=== PATIENT | female | born 1965 | race Caucasian/White ===

== ENCOUNTER → 2020-08-16 13:30 | Outpatient (CLI) | payer OTHER, SELFPAY ==
[2020-08-16 13:57] LABS: COVID19 -Nasal RAPID Negative (Negative)
== END ==
PROVIDERS: PCP Internal Medicine; Visit Provider Obstetrics & Gynecology
DX: Z20.822 Contact with and (suspected) exposure to COVID-19 (principal)
CPT/HCPCS: 87635

== ENCOUNTER 2020-08-19 10:02 | Day surgery (SDC) | payer OTHER, SELFPAY ==
[2020-08-19] VITALS (8 sets, daily range): BP systolic 115–135; BP diastolic 76–83; PULSE 57–74; RESP 11–17; TEMP 36.1–36.2; O2SAT 94–99; BMI 32.9
--- NOTE | 2020-08-19 | PATH_ITS ---
[facility] Accession Number: [id number] . 01 Material submitted: . endocervix - ENDOCERVIX . 01 Clinical history: . LEEP CONE BX OF CERVIX SHORT STITCH AT 6 O'CLOCK . 02 Diagnosis: Cervix, Endocervix, LEEP: Squamous and endocervical mucosa with no evidence of neoplasia. Please see comment. MRV 08/23/2020 1501 Local . 02 Comment: The transformation zone is not well represented in the sections examined including the additional multiple deeper levels. This may be due to the recent history of instrumentation. These findings do not correlate with the patient's prior pap smear report. The prior Pap smear was requested for review/correlation from the outside institution on 08/22/2020. . Dr. Carlson discussed preliminary results with Dr. Ball on 08/22/2020. . 02 Electronically signed: . Zenaida Carlson MD, Pathologist NPI- [id number] . 01 Gross description: . The specimen is received in formalin, labeled ectocervix and consists of a 1.5 x 1.0 cm marion-pink smooth portion of ectocervix excised to a depth of 0.8 cm with a 0.3 x 0.2 cm os. There is a long suture designated 12 o'clock. Also received is a 1.5 x 1.2 x 0.6 cm marion-pink portion of cervix with a short suture designated 6 o'clock. The endocervical margin is inked blue, the ectocervical margin is inked black, and the additional portion of cervix margin is inked blue. The specimen is serially sectioned and entirely submitted. . A1-A4: ectocervix, radially sectioned and submitted in four quadrants (12-3, 3-6, 6-9, and 9-12 o'clock). A5-A8: additional portion of cervix submitted in four quadrants submitted in four quadrants (12-3, 3.6, 6.9 and 9-12 o'clock). ([id number]) /MRV 08/20/2020 1654 Local . 02 Pathologist provided ICD-10: R87.613 . 02 CPT . 689471 Performed at: 01 [facility] [address] [address], [place], [place] [id number] MD Matthias Rosas MD Phone: [phone] Performed at: 02 [facility] [address] [place], [place] [id number] MD Zenaida Carlson MD Phone: [phone]
[2020-08-19] MEDS: LACTATED RINGERS 1,000 ML 42 ML IV (10:31)
--- NOTE | 2020-08-19 10:40 | PM.HP.1 ---
History of Present Illness History of Present Illness Date Patient Seen: 08/19/20 Time Patient Seen: 10:40 Chief complaint: LEEP CONE BX OF CERVIX Narrative: Patient is a 55-year-old with high-grade BILL on Pap with positive high-risk HPV, negative ECC on colposcopy. Transformation zone not visualized. Patient is here for LEEP cone biopsy of the cervix. 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 Surgical menopause Surgical History (Updated 08/19/20 @ 10:29 by Karthik Guillaume RN) History of abdominoplasty History of carpal tunnel surgery of left wrist Hx of breast reduction, elective Family & Social History Tobacco & Substance use: Smoking Status Never smoker Meds Home Medications and Allergies Home Medications Medication Instructions Recorded Confirmed Type estrace 1 patch TRANSDERMAL Q3D 07/10/20 08/19/20 History hydrochlorothiazide 25 mg tablet 25 mg PO DAILY 07/10/20 08/19/20 History losartan 50 mg tablet 75 mg PO DAILY 07/10/20 08/19/20 History omega-3 fatty acids 1,000 mg 1,000 mg PO DAILY 07/10/20 08/19/20 History capsule pravastatin 20 mg tablet 40 mg PO DAILY 07/10/20 08/19/20 History progesterone 1 tab PO DAILY 07/10/20 08/19/20 History testosterone 1 % (50 mg/5 gram) 1 packet TRANSDERMAL DAILY 07/10/20 08/19/20 History transdermal gel packet icosapent ethyl [Vascepa] 2 g PO DAILY 08/19/20 08/19/20 History Allergies Allergy/AdvReac Type Severity Reaction Status Date / Time No Known Drug Allergies Allergy Unverified 08/13/20 09:40 Exam Vital Signs (past 8 hours): HEENT: No thyromegaly, no anterior cervical or supraclavicular lymphadenopathy. Lungs:Clear to auscultation bilaterally, no wheezes. Cardiovascular: Regular rate and rhythm, no murmurs, rubs, or gallops. Abdomen: Well-healed abdominoplasty scars. No hepatosplenomegaly. No masses palpable. External genitalia: Normal Vagina: Normal Cervix: Status post LEEP. Stenotic os. Bimanual exam: 5 Week size anteverted uterus. Mobile. Rectal: No masses. Assessment & Plan Assessment & Plan narrative: Assessment: 55-year-old with high-grade BILL on Pap with positive high-risk HPV Unable to visualize the transformation zone on colposcopy Negative ECC Plan: LEEP cone biopsy of the cervix with colposcopy of the vagina COVID-19 COVID-19 status: Negative Result date/Date tested (Pos, Neg/Pending): 08/16/20 Time Spent With Patient Time with patient: less than 15 minutes
--- NOTE | 2020-08-19 10:42 | PM.PREOP ---
Pre-operative Note COVID-19 COVID-19 status: Negative Result date/Date tested (Pos, Neg/Pending): 08/16/20 Interval Note History & Physical reviewed/Exam performed by Physician: Yes Changes to H&P: No H&P completed within 30 days and has changed as indicated here:: 08/19/20
--- NOTE | 2020-08-19 11:28 | SUR.OPER ---
Lithotomy on padded OR bed, head on pillow, arms secured on padded arm boards at <90 degrees abduction. Legs secured in padded yellow fins stirrups.
--- NOTE | 2020-08-19 11:58 | PM.GYNOP.1 ---
Operative Date/Time/Diagnoses Date of procedure: 08/19/20 Time of procedure: 11:58 Pre-op diagnosis: High-grade BILL on Pap High-risk HPV on Pap Negative ECC on colposcopy Transformation zone not visualized on colposcopy Post-op diagnosis: same Procedure & Clinicians Procedure: Procedures Operation Date: 08/19/20 11:15 Actual Procedures Side Surgeon p LEEP Cone biopsy of Cervix, and colposcopy of vagina and cervix Simran Ball MD Indications: High-grade BILL on Pap High-risk HPV on Pap Negative ECC on colposcopy Transformation zone not visualized on colposcopy Surgeon: Simran Ball Anesthesia Type: General (LMA) Operative Notes Findings: No aceto-white areas on colposcopy of the cervix or vagina Closure Type: not applicable Specimen(s): other (Ectocervix with long suture at 12:00 p.m., endocervix with short suture at 6:00 a.m.) Estimated blood loss (mL): 10 Blood products transfused: none Procedure in detail: After informed consent was obtained, the patient was taken to the operating room where she was placed in the dorsal supine position. After adequate LMA general anesthesia was achieved, she was placed in the dorsal lithotomy position, and prepped and draped in the usual sterile fashion. A time-out was performed. A plastic coated bivalve speculum was placed into the vagina. 5% ascetic acid was placed on the cervix. Under colposcopic examination there were no aceto-white areas. The endocervical canal was stenotic. Ascetic acid was applied to the vaginal sanders. Under colposcopic examination there were no aceto-white areas of the vaginal sanders. There were no green filter changes of either the cervix or the vaginal sanders. Using the 1.5 cm loop with settings at 80 cut and 60 cautery, the ectocervix was excised. The specimen was tagged at 12:00 p.m. with a long suture. Using the smaller 10 mm loop, the endocervix was excised and a suture was placed at the 6 o'clock position. Cautery was used to achieve hemostasis. At the 9 o'clock position there was a persistent area of bleeding. Using 2 0 chromic a [id number] suture was placed for hemostasis. The cervix was observed for 10 minutes with no further bleeding. The bivalve speculum was removed from the vagina. Triple suction was used throughout the procedure. And 95 masks were worn by all personnel in the operating room. Sponge, lap, and instrument counts were correct x2. The patient tolerated the procedure well, and was taken to PACU in stable condition. Complications: none Post-operative Condition: stable Disposition: PACU Plan for aftercare: Home after recovery
[2020-08-19] MEDS: KETOROLAC 30 MG/ML VIAL IV (12:06)
== END 2020-08-19 12:45 | disposition home or self-care (01) ==
PROVIDERS: PCP Internal Medicine; Referring Provider Obstetrics & Gynecology; Visit Provider Obstetrics & Gynecology
PROC: 0UBC7ZZ Excision of Cervix, Via Natural or Artificial Opening (ICD-10-PCS; CPT 57522; principal; 2020-08-19 11:15)
DX: R87.613 High grade squamous intraepithelial lesion on cytologic smear of cervix (HGSIL) (principal); B97.7 Papillomavirus as the cause of diseases classified elsewhere
CPT/HCPCS: 57460; J1885; J2250; J2405; J2704; J3010

== ENCOUNTER → 2021-08-26 16:24 | Outpatient (CLI) | payer OTHER, SELFPAY ==
--- NOTE | 2021-08-26 | DI.MG.S_ITS ---
BILATERAL DIGITAL SCREENING MAMMOGRAM 3D/2D WITH CAD: 08/26/2021 CLINICAL: Routine screening. Comparison is made to exams dated: 05/31/2019 mammogram, 05/11/2018 mammogram, and 04/14/2017 mammogram - outside. There are scattered fibroglandular elements in both breasts. Current study was also evaluated with a Computer Aided Detection (CAD) system. There is a benign cyst in the right breast. There also are benign cysts in the left breast. No significant masses, calcifications, or other findings are seen in either breast. There has been no significant interval change. IMPRESSION: BENIGN There is no mammographic evidence of malignancy. A 1 year screening mammogram is recommended. This exam was interpreted at Station ID: [id number]. NOTE: For mammograms, a report in lay terms will be sent to the patient. Approximately 15% of breast malignancies will not be visualized mammographically. In the management of a palpable breast mass, a negative mammogram must not discourage biopsy of a clinically suspicious lesion. Electronically Signed By: Sae hastings/toi:08/27/2021 09:31:15 letter sent: Normal Exam ACR BI-RADS Category 2: Benign Finding(s) [id number]
== END ==
PROVIDERS: PCP Nurse Practitioner; Referring Provider Obstetrics & Gynecology; Visit Provider Obstetrics & Gynecology
DX: Z12.31 Encounter for screening mammogram for malignant neoplasm of breast (principal)
CPT/HCPCS: 77063; 77067

== ENCOUNTER → 2023-04-14 07:34 | Outpatient (CLI) | payer OTHER, SELFPAY ==
--- NOTE | 2023-04-14 | DI.MG.S_ITS ---
BILATERAL DIGITAL SCREENING MAMMOGRAM 3D/2D WITH CAD: 04/14/2023 CLINICAL: Routine screening. Comparison is made to exams dated: 08/26/2021 mammogram - [facility], 05/31/2019 mammogram, 05/11/2018 mammogram, and 04/14/2017 mammogram - outside. There are scattered areas of fibroglandular density in both breasts (category b / 25%-50% glandular tissue). Current study was also evaluated with a Computer Aided Detection (CAD) system. There is a benign cyst in the right breast. There also are benign cysts in the left breast. Additionally, there are benign calcifications in both breasts. No significant masses, calcifications, or other findings are seen in either breast. There has been no significant interval change. IMPRESSION: BENIGN There is no mammographic evidence of malignancy. A 1 year screening mammogram is recommended. Based on the Tyrer Cuzick model (a risk assessment model) the patient's lifetime risk is 7.9% and her 10 year risk is 2.8%. According to the ACR, ACS, and NCCN guidelines, an annual breast MRI exam along with mammogram is recommended if the patient's lifetime risk is 20% or greater. This exam was interpreted at Station ID: [id number]. NOTE: For mammograms, a report in lay terms will be sent to the patient. Approximately 15% of breast malignancies will not be visualized mammographically. In the management of a palpable breast mass, a negative mammogram must not discourage biopsy of a clinically suspicious lesion. Electronically Signed By: Sae hastings/toi:04/14/2023 08:32:53 copy to: NELLI WILSON letter sent: Normal Exam ACR BI-RADS Category 2: Benign Finding(s) 3342F
== END ==
PROVIDERS: PCP Nurse Practitioner; Referring Provider Obstetrics & Gynecology; Visit Provider Obstetrics & Gynecology
DX: Z12.31 Encounter for screening mammogram for malignant neoplasm of breast (principal)
CPT/HCPCS: 77063; 77067

== ENCOUNTER → 2024-01-20 14:06 | Outpatient (CLI) | payer BC, SELFPAY ==
--- NOTE | 2024-01-20 14:10 | DI.RAD.S_ITS ---
PROCEDURE: XR DEXA AXIAL SKELETON INDICATIONS: Menopausal and female climacteric states COMPARISON: None. FINDINGS: Lumbar Spine: Bone mineral density 1.10 g/cm2, T score 0.4,. Left Hip: Bone mineral density 1.0 g/cm2, T score 0.6,. Left Femoral Neck: Bone mineral density 0.82 g/cm2, T score -0.3,. Right Hip: Bone mineral density 1.05 g/cm2, T score 0.9,. Right Femoral Neck: Bone mineral density 0.85 g/cm2, T score 0,. Fracture Risk Calculation (when applicable): 10-year fracture risk of a major osteoporotic fracture 6% and of a hip fracture 0.2%. (T score greater or equal to -1.0 to: NORMAL) (T score from -1.1 to -2.4: OSTEOPENIA) (T score less than or equal to -2.5: OSTEOPOROSIS) IMPRESSION: T-scores are within normal limits. FRAX fracture risk calculation as above. Follow-up guidelines as follows: Osteoporosis: Consider a repeat DEXA and Vertebral Fracture Assessment (VFA) exam in 2 years or sooner if medically necessary, to reassess this patient's status. Osteopenia: Consider a repeat DEXA in 2-3 years to reassess this patient's status, or if there is a new clinical indication. Normal: Consider a repeat DEXA in 5 years or sooner, or if there is a new clinical indication. All treatment decisions require clinical judgment and consideration of individual patient factors, including patient preferences, comorbidities, previous drug use, risk factors not captured in the FRAX model (e.g., frailty, falls, vitamin D deficiency, increased bone turnover, interval significant decline in bone density ) and possible under- or over-estimation of fracture risk by FRAX. In addition, the NOF Guide recommends that FDA-approved medical therapies be considered in postmenopausal women and men age >= 50 years with a: * Hip or vertebral (clinical or morphometric) fracture * T-score of <=-2.5 at the spine or hip * Ten-year fracture probability by FRAX of >= 3% for hip fracture or >=20% for major osteoporotic fracture. People with diagnosed cases of osteoporosis or at high risk for fracture should have regular bone mineral density tests. For patients eligible for Medicare, routine testing is allowed once every 2 years. The testing frequency can be increased to one year for patients who have rapidly progressing disease, those who are receiving or discontinuing medical therapy to restore bone mass, or have additional risk factors. Dictated by: Dean Hastings M.D. on 01/21/2024 at 14:17 Approved by: Dean Hastings M.D. on 01/21/2024 at 14:19
== END ==
PROVIDERS: PCP Nurse Practitioner; Referring Provider Obstetrics & Gynecology; Visit Provider Obstetrics & Gynecology
DX: N95.1 Menopausal and female climacteric states (principal); E66.9 Obesity, unspecified
CPT/HCPCS: 77080